=== PATIENT | male | born 1940 | race Caucasian/White ===

== ENCOUNTER → 2020-04-05 | Emergency (ER) | payer MEDICARE ==
[~2020-04-05] MED LIST: Iopamidol 370 76% 100 ML VIAL ONE; Morphine 4 MG/ML VIAL ONE
[2020-04-05 15:36] LABS: %Neutrophils 89.5 % (42.0-75.0); Hemoglobin 15.7 g/dL (14.0-18.0); Manual Diff?? YES; Mean Corpuscular HGB CONC 31.5 g/dL (32.0-36.0); Mean Corpuscular Hemoglobin 28.8 pg (27.0-31.0); Mean Corpuscular Volume 91.4 fL (78.0-98.0); Mean Platelet Volume 9.9 fL (7.4-10.4); Platelet Count 159 thou/uL (130-400); RBC Distribution Width 14.4 % (11.5-14.5); Red Blood Cell (RBC) Count 5.44 mill/uL (4.70-6.10); White Blood Cell (WBC) Count 14.8 thou/uL (4.8-10.8)
[2020-04-05 15:37] LABS: #Basophils 0.1 thou/uL (0.0-0.2); #Monocytes 0.9 thou/uL (0.11-0.59); #Neutrophils 13.2 thou/uL (1.40-6.50); %Basophils 0.4 % (0.0-1.0); %Eosinophils 0.1 % (0.0-10.0); MDiff Complete? YES
[2020-04-05 15:38] LABS: INR-International Normal Ratio 2.3; Prothrombin Time 25.4 sec (12.0-14.7)
[2020-04-05 15:44] LABS: Anion Gap 17 mmol/L (10-20); BUN (Urea Nitrogen) 30 mg/dL (8.4-25.7); Carbon Dioxide 25 mmol/L (23-31); Chloride 103 mmol/L (98-107); Potassium 4.4 mmol/L (3.5-5.1); Sodium 140 mmol/L (136-145)
[2020-04-05 15:45] LABS: ALT (SGPT) 27 U/L (8-55); AST (SGOT) 20 U/L (5-34); Albumin 4.2 g/dL (3.4-4.8); Alkaline Phosphatase 74 U/L (40-110); Bilirubin, Total 0.7 mg/dL (0.2-1.2); Calc. Creatinine Clearance 0 mL/min (70-130); Calcium 9.4 mg/dL (7.8-10.44); Globulin 2.8 g/dL (2.4-3.5); Glucose 141 mg/dL (83-110)
--- NOTE | 2020-04-05 19:32 | CT ---
CT OF THE CHEST AND ABDOMEN AND PELVIS WITH CONTRAST: Date: 04/05/[address] of the chest, abdomen, and pelvis was performed following a fall. FINDINGS: CT THORAX: Fractures of ribs 4-10 are present with only minimal displacement. There is a small underlying pneumo thorax, probably 15% or so, with dependent atelectasis of the left lower lobe. Some soft tissue air i s seen just outside of the rib fractures. There is no shift of the mediastinum. Basilar atelectasis i s seen on the right, probably due to shallow breaths. No rib fractures are seen on the right. The tho racic spine appears intact. There is no evidence of mediastinal hematoma. There has been prior cardia c surgery. CT ABDOMEN: CT of the abdomen shows intact liver, spleen, pancreas, adrenal glands, gallbladder, kidneys, and abd ominal aorta. No sign of laceration or hematoma to any major organ. No free air or free fluid detecte d. The bowel shows no distention or wall thickening. There is a small hiatal hernia. There is also a small right inguinal hernia with bowel in it, but no sign of obstruction. CT PELVIS: CT of the pelvis showed no sign of pelvic hematoma, free fluid, or mass. The bony pelvis appears inta ct, as does the lumbar spine. IMPRESSION: Fractures of left ribs 4-10 with an underlying small pneumothorax. The patient should be sequentially monitored to ensure that the pneumothorax is not growing in size. Preliminary findings discussed with Dr. Gan at 1632 hours on 04/05/2020. CODE CR. POS: HOME
[2020-04-05 20:11] LABS: #Lymphocytes 0.6 thou/uL (1.20-3.40)
== END ==
LOC: BURERS 12:45
DX: S27.0XXA Traumatic pneumothorax, initial encounter (principal); S22.42XA Multiple fractures of ribs, left side, initial encounter for closed fracture; I10 Essential (primary) hypertension; I48.91 Unspecified atrial fibrillation; E11.9 Type 2 diabetes mellitus without complications; Z79.899 Other long term (current) drug therapy; W18.30XA Fall on same level, unspecified, initial encounter
CPT/HCPCS: 71260; 74177; 80053; 85025; 85610; 96374; 96376; J2270; Q9967

== ENCOUNTER 2020-04-18 16:12 | Emergency (ER) | payer MEDICARE ==
[2020-04-18 16:46] LABS: Bilirubin Negative (Negative); Blood, Urine Negative (Negative); Clarity Clear (Clear); Glucose, Urine (Dipstick) Negative (Negative); Ketone, Urine Negative (Negative); Leukocyte Negative (Negative); Nitrite Negative (Negative); Protein, Urine (Dipstick) Negative (Neg-Trace); Specific Gravity, Urine 1.015 (1.005-1.030)
[2020-04-18] MEDS ORDERED: Fleet Enema 133 ML BOT ONE (17:10)
== END 2020-04-18 18:20 | disposition home or self-care (01) ==
LOC: BURERS 16:12
DX: K59.00 Constipation, unspecified (principal); R33.9 Retention of urine, unspecified; I48.91 Unspecified atrial fibrillation; I10 Essential (primary) hypertension; E11.9 Type 2 diabetes mellitus without complications; Z86.16 Personal history of COVID-19; Z79.84 Long term (current) use of oral hypoglycemic drugs; Z79.899 Other long term (current) drug therapy; Z79.01 Long term (current) use of anticoagulants
CPT/HCPCS: 81003; 99283

== ENCOUNTER 2023-07-31 12:52 | Emergency (ER) | payer MEDICARE ==
[2023-07-31] MEDS ORDERED: Ketorolac Tromethamine 30 MG (1 mL) VIAL ONE (13:05)
[2023-07-31] MEDS ORDERED: Acetaminophen/Codeine 30-300mg Tablet ONE (13:34)
== END 2023-07-31 13:40 | disposition home or self-care (01) ==
LOC: BURERS 12:52
DX: M25.551 Pain in right hip (principal); E11.9 Type 2 diabetes mellitus without complications; I10 Essential (primary) hypertension
CPT/HCPCS: 73502; J1885; 96372